=== PATIENT | female | born 1955 | race Two or more races ===

== ENCOUNTER 2022-04-13 01:25 | Emergency (ER) | payer SELFPAY ==
[2022-04-13 02:03] VITALS: BP 149/65; PULSE 81; TEMP 98.4; BMI 35.7
== END 2022-04-13 02:51 | disposition left against medical advice (07) ==
LOC: JER 01:25
DX: R73.9 Hyperglycemia, unspecified (principal); I10 Essential (primary) hypertension
CPT/HCPCS: 82962; 99283-25